=== PATIENT | female | born 1960 | race Caucasian/White ===

== ENCOUNTER 2017-05-01 13:40 | Emergency (ER) | payer OTHER ==
[~2017-05-01] VITALS: Ht 165.1 cm; Wt 65.9 kg
[2017-05-01] MEDS ORDERED: SULFAMETHOX/TRIMETH DS 800-160 MG/TABLET PO ONE (14:30)
[2017-05-01] MEDS ORDERED: IBUPROFEN 600 MG TABLET PO ONE (14:30)
[2017-05-01] MEDS ORDERED: CLINDAMYCIN HCL 150 MG CAPSULE PO ONE (14:30)
[2017-05-01] MEDS ORDERED: BUPIVACAINE HCL/PF 0.25% 10 ML VIAL INJ ONE (14:30)
[2017-05-01] MEDS ORDERED: POVIDONE-IODINE 10% 15 ML SOLUTION UD TP ONE ×2 (15:00)
[2017-05-01 15:02] VITALS: BP 110/71
== END 2017-05-01 15:07 | disposition home or self-care (01) ==
LOC: EMS 13:42
DX: N76.4 Abscess of vulva (principal); E78.00 Pure hypercholesterolemia, unspecified; I10 Essential (primary) hypertension; F17.210 Nicotine dependence, cigarettes, uncomplicated
CPT/HCPCS: 56405; 99284; J3490

== ENCOUNTER 2018-07-14 23:06 | Emergency (ER) | payer OTHER ==
[~2018-07-14] VITALS: Ht 165.1 cm; Wt 63.6 kg
[2018-07-15] MEDS ORDERED: ACYCLOVIR 200 MG CAPSULE PO ONE (01:45)
[2018-07-15] MEDS ORDERED: LIDOCAINE 5% TRANSDERMAL PATCH TP ONE (01:45)
[2018-07-15] MEDS ORDERED: PredniSONE 20 MG TABLET PO ONE (01:45)
[2018-07-15] MEDS ORDERED: HYDROCODONE/ACETAMINOPHEN 5-325 MG TABLET PO ONE (01:45)
[2018-07-15 02:03] VITALS: BP 134/70
== END 2018-07-15 02:05 | disposition home or self-care (01) ==
LOC: EMS 23:06
DX: B02.9 Zoster without complications (principal); F17.210 Nicotine dependence, cigarettes, uncomplicated; I10 Essential (primary) hypertension; E78.00 Pure hypercholesterolemia, unspecified
CPT/HCPCS: 99284; 99406; J7512

== ENCOUNTER 2018-07-22 15:49 | Emergency (ER) | payer OTHER ==
[~2018-07-22] VITALS: Ht 165.1 cm; Wt 65.9 kg
[2018-07-22 17:59] VITALS: BP 121/72
[2018-07-22] MEDS ORDERED: IBUPROFEN 600 MG TABLET PO ONE (18:00)
== END 2018-07-22 18:01 | disposition home or self-care (01) ==
LOC: EMS 15:50
DX: B02.29 Other postherpetic nervous system involvement (principal); I10 Essential (primary) hypertension; E78.00 Pure hypercholesterolemia, unspecified; F17.210 Nicotine dependence, cigarettes, uncomplicated